=== PATIENT | female | born 1960 | race Caucasian/White ===

== ENCOUNTER 2021-02-13 02:40 | Observation (INO) | payer OTHER ==
[~2021-02-13] VITALS: Ht 162.6 cm; Wt 94.0 kg
--- NOTE | 2021-02-13 02:45 | NUR ---
code neuro called @ 8130
[2021-02-13] MEDS ORDERED: OMNIPAQUE 350 MG/ML, 100ML BOTTLE ONE (02:50)
[2021-02-13] MEDS ORDERED: ALTEPLASE 1 ML ONE (03:03)
[2021-02-13] MEDS ORDERED: METOCLOPRAMIDE 5 MG/ML, 2ML ONE (03:03)
--- NOTE | 2021-02-13 03:15 | NUR ---
RECEIVED REPORT, PT IN TR3 AND AWAKE, AWAITING NEUROLOGY TO COME ON THE TELE EVAL. PT SITTING UP IN BED. PT HAS PIV TO RIGHT HAND 20G INTACT. 2ND IV TO LEFT AC 18G X1 ATTEMPT. PTS AT BEDSIDE.
--- NOTE | 2021-02-13 03:18 | NUR ---
LATE ENTRY: PT ARRIVAL TO ED W STROKE LIKE S/S OF SUDDEN ONSET DIZZINESS AND LUE/LLE NUMBNESS. DIZZINESS WOKE HER FROM SLEEP AT 0230. LAST KNOWN WELL 0000. CODE NEURO CALLED BY DR OCASIO UPON INITIAL ASSESSMENT. BG 219, TAKEN TO CT AND RETURNED TO T3 FOR FURTHER MANAGEMENT. PT WITH EMESIS UPON RETURN FROM CT. ORDER RECEIVED FOR REGLAN; PT MEDICATED. HX RA, HTN, BACK PAIN. DENIES BLOOD THINNERS. BP/SPO2/ECG MONITORING IN PLACE, SINUS TACH ON MONITOR. BP ACCEPTABLE LIMIT FOR TPA ADMIN. NEURO TELE ATTEMPTED W POOR CONNECTION. NEURO TO CONTACT ERP W RECOMMENDATIONS. REPORT TO NIKOS MCDANIEL.
--- NOTE | 2021-02-13 03:24 | NUR ---
MD TO BEDSIDE TO EVGABE NEURO ON PT, AND PT STATES SHE GOT NAUSEOUS FROM IT. MD SPEAKING WITH NEUROLOGY. PT AWAKE AND ALERT, AND SAT UP IN BED HIGH FOWLERS.
[2021-02-13] MEDS ORDERED: MECLIZINE CHEWABLE 25 MG TAB PO ONE (03:30)
[2021-02-13] MEDS ORDERED: DIAZEPAM 5 MG/ML, 2ML IVPush ONE (03:30)
[2021-02-13] MEDS ORDERED: METOCLOPRAMIDE 5 MG/ML, 2ML IVPush ONE (03:30)
[2021-02-13] MEDS ORDERED: PLEASE ENTER ALLERGIES MC SCH (03:30)
--- NOTE | 2021-02-13 03:34 | NUR ---
PT PLACED ON BED WALDROP TO VOID. PT RESPIRATORY RATE DECREASED TO 22. PT SITTING UP, AWAKE AND ALERT. PT STATES SHE IS STILL DIZZY. MD TO BEDSIDE TO SPEAK WITH PT AND ABOUT PLAN OF CARE. AND PT TO BE ADMITTED.
[2021-02-13 03:37] LABS: BASOPHILS % (AUTO) 1 % (0-1); EOSINOPHILS % (AUTO) 2 % (1-7); LYMPHOCYTES % (AUTO) 23 % (22-44); MEAN CORPUSCULAR HEMOGLOBIN 31.5 pg (27.0-34.8); MEAN CORPUSCULAR HGB CONC 34.7 g/dL (32.4-35.8); MEAN PLATELET VOLUME 9.3 fL (7.4-10.4); MONOCYTES % (AUTO) 10 % (2-9); NEUTROPHILS % (AUTO) 66 % (42-75); PLATELET COUNT 264 x10^3/uL (130-400); RED BLOOD COUNT 4.44 x10^6/uL (3.82-5.3)
[2021-02-13] MEDS ORDERED: MECLIZINE CHEWABLE 25 MG TAB ONE (03:41)
[2021-02-13] MEDS ORDERED: NS + 40MEQ KCL 1,000 ML IV ONE (03:41)
[2021-02-13] MEDS ORDERED: DIAZEPAM 5 MG/ML, 2ML ONE (03:41)
[2021-02-13] MEDS ORDERED: PROMETHAZINE 25 MG/ML, 1ML ONE (03:51)
--- NOTE | 2021-02-13 03:54 | NUR ---
Verbal phenergan 25mg IM, given to LVG. for n/v
[2021-02-13] MEDS ORDERED: POTASSIUM CHLORIDE 40 MEQ in SODIUM CHLORIDE 0.9% 500 ML IV ONE ×2 (04:00→08:30)
[2021-02-13] MEDS ORDERED: PROMETHAZINE 25 MG/ML, 1ML IM ONE (04:00)
[2021-02-13 04:04] LABS: INTERNATIONAL NORMALIZED RATIO 0.95 (0.93-1.1); PROTHROMBIN TIME 10.2 Seconds (9.6-11.5)
[2021-02-13 04:10] LABS: PARTIAL THROMBOPLASTIN TIME < 23 Seconds (25-31)
--- NOTE | 2021-02-13 04:13 | NUR ---
JAMSHID RN: PT VOMITING AT THIS TIME. ORDER OBTAINED FROM LENO GUTIERREZ FOR PHENERGEN IM. PT PLACED ON O2 2L VIA NC. PT CLEANED UP AND PLACED IN NEW GOWN. VSS, NAUSEA IMPROVING.
[2021-02-13] MEDS ORDERED: MAGNESIUM SULFATE/D5W 100 ML IV ONE (04:30)
--- NOTE | 2021-02-13 04:35 | NUR ---
PT AWAKE AND ALERT, AND STATES THAT THE PHENERGAN HAS HELPED HER A LOT. PT ABLE TO MOVE UP IN BED AND SCOOT HERSELF. NEW PAD PLACED UNDER PT SHE HAS ALSO USED THE BED WALDROP AGAIN. PTS AT BEDSIDE.
[2021-02-13] MEDS ORDERED: MAGNESIUM SULFATE/D5W 100 ML ONE (04:42)
--- NOTE | 2021-02-13 05:17 | NUR ---
REPORT CALLED TO JACOB KNOTT. PT PACKAGED AND TRANSPORTED TO FLOOR WITH CR MONITOR, AND PT SLEEPY, BUT AWAKENS EASILY. PIV X2 INTACT, NO SWELLING, NO REDNESS NOTED.
[2021-02-13] MEDS ORDERED: PROMETHAZINE 25 MG/ML, 1ML IM PRN (05:30)
[2021-02-13] MEDS ORDERED: ACETAMINOPHEN 650 MG/20.3 ML UDC PO PRN (05:30)
[2021-02-13] MEDS ORDERED: DIAZEPAM 5 MG/ML, 2ML IV PRN ×2 (05:30→05:44)
[2021-02-13] MEDS ORDERED: ONDANSETRON 2MG/ML, 2ML IVPush PRN (05:30)
[2021-02-13] MEDS ORDERED: LABETALOL 5MG/ML, 20ML IV PRN (05:30)
[2021-02-13] MEDS ORDERED: MECLIZINE 12.5 MG TABLET PO PRN (05:30)
[2021-02-13 05:43] VITALS: BP 123/82
[2021-02-13 06:53] VITALS: BP 125/79
[2021-02-13] MEDS ORDERED: MAGNESIUM SULFATE PMX 4GM/100M 100 ML IVPB ONE (08:30)
[2021-02-13] MEDS ORDERED: GADOTERATE 10 MMOL/20ML SYR ONE (09:33)
[2021-02-13] MEDS ORDERED: POTASSIUM CHLORIDE 20 MEQ PACKET PO ONE (11:00)
[2021-02-13 11:32] VITALS: BP 130/81
[2021-02-13 12:49] LABS: ANION GAP 5 mmol/L (5-15); CALCIUM 8.4 mg/dL (8.5-10.1); CHLORIDE 108 mmol/L (98-107); CREATININE 0.63 mg/dL (0.55-1.02)
[2021-02-13] MEDS ORDERED: MECL-101 PO (14:50)
[2021-02-13] MEDS ORDERED: ASPI81TA45 PO (14:51)
== END 2021-02-13 15:48 | disposition home or self-care (01) ==
LOC: ED 04:26 → INTOOBSV 04:32 → EDIP 04:32 → 4WST 05:25
PROVIDERS: ADMIT Family Medicine; ATTEND Internal Medicine
DX: H81.10 Benign paroxysmal vertigo, unspecified ear (principal); R20.2 Paresthesia of skin; R11.2 Nausea with vomiting, unspecified; E87.6 Hypokalemia; E83.42 Hypomagnesemia; R73.9 Hyperglycemia, unspecified; M06.9 Rheumatoid arthritis, unspecified; D84.9 Immunodeficiency, unspecified; I10 Essential (primary) hypertension; G89.29 Other chronic pain; M54.9 Dorsalgia, unspecified; E66.9 Obesity, unspecified; R94.31 Abnormal electrocardiogram [ECG] [EKG]; Z68.35 Body mass index [BMI] 35.0-35.9, adult; Z86.73 Personal history of transient ischemic attack (TIA), and cerebral infarction without residual deficits; Z96.619 Presence of unspecified artificial shoulder joint; Z96.651 Presence of right artificial knee joint; Z79.899 Other long term (current) drug therapy
CPT/HCPCS: 70450; 70496; 70498; 70553; 80047; 80048; 82962; 83036; 83735; 85025; 85610; 85730; 93005; 96365; 96366; 96368; 96372; 96375; 96376; 97162; 99285; A9575; G0378; J2550; J2765; J3360; J3475; J3480; J7040; Q9967; 96374